=== PATIENT | female | born 1960 | race Caucasian/White ===

== ENCOUNTER 2020-11-12 11:21 | Inpatient (IN) | payer SELFPAY ==
[2020-11-12 11:31] VITALS: BMI 21.9
[2020-11-12 12:19] LABS: BASO % 0.3 % (0-2.0); HEMATOCRIT 36.7 % (32.4-45.2); HEMOGLOBIN 12.4 GM/dL (10.7-15.3); LYMPH % 2.6 % (8-40); MCH 34.7 pg (25.7-33.7); MCHC 33.8 g/dl (32.0-36.0); MEAN CELL VOLUME 102.7 fl (80-96); MONO % 5.1 % (3.8-10.2); PLATELET COUNT 283 10^3/uL (134-434); RBC 3.58 M/mm3 (3.60-5.2); RDW 14.8 % (11.6-15.6); WHITE BLOOD COUNT 22.5 K/mm3 (4.0-10.0)
[2020-11-12 12:36] LABS: CHLORIDE 106 mmol/L (98-107); SODIUM 124 mmol/L (136-145)
[2020-11-12 12:40] LABS: ALBUMIN 3.4 g/dl (3.4-5.0); CALCIUM 7.7 mg/dL (8.5-10.1); CO2 23 mmol/L (21-32); GLUCOSE,RANDOM 156 mg/dL (74-106)
[2020-11-12 12:41] LABS: MAGNESIUM 2.1 mg/dL (1.8-2.4)
[2020-11-12 12:43] LABS: CREATININE 0.7 mg/dL (0.55-1.3); PHOSPHOROUS 4.8 mg/dL (2.5-4.9)
[2020-11-12 12:44] LABS: ALK PHOS 77 U/L (45-117); TOT PROT 8.5 g/dl (6.4-8.2)
[2020-11-12 12:51] LABS: ANISOCYTOSIS 1+; MACROCYTOSIS 1+; PLATELET ESTIMATE NORMAL
[2020-11-12 12:52] LABS: ANION GAP -5 MMOL/L (8-16)
[2020-11-12] MEDS ORDERED: ceFAZolin 2 GRAM PREMIX BAG IVPB ONE (13:00)
[2020-11-12] MEDS ORDERED: DIPHTH,PERTUSS(ACELL),TET 0.5 ML DISP.SYRIN IM ONE ×2 (13:01→14:08)
[2020-11-12] MEDS ORDERED: ACETAMINOPHEN 325 MG TABLET (FP) PO ONE (13:01)
[2020-11-12] MEDS ORDERED: ACETAMINOPHEN 1000 MG/100 ML VIAL (NON FORMULARY) IVPB ONE (13:06)
[2020-11-12] MEDS ORDERED: levETIRAcetam 500 MG/5 ML INJECTION VIAL IVPB ONE ×3 (13:12→14:10)
[2020-11-12 13:59] LABS: CHLORIDE 111 mmol/L (98-107); SODIUM 144 mmol/L (136-145)
[2020-11-12 14:02] LABS: ALBUMIN 3.6 g/dl (3.4-5.0); ANION GAP 7 MMOL/L (8-16); BLOOD UREA NITROGEN 11.5 mg/dL (7-18); CALCIUM 8.5 mg/dL (8.5-10.1); CO2 26 mmol/L (21-32); GLUCOSE,RANDOM 108 mg/dL (74-106)
[2020-11-12 14:05] LABS: CREATININE 0.5 mg/dL (0.55-1.3); SGOT/AST 27 U/L (15-37); SGPT/ALT 25 U/L (13-61)
[2020-11-12] MEDS ORDERED: ACETAMINOPHEN INJECTION 100 ML IVPB ONE (14:07)
[2020-11-12] MEDS ORDERED: ACETAMINOPHEN 325 MG TABLET (FP) ONE (14:07)
[2020-11-12 14:08] LABS: ALK PHOS 74 U/L (45-117)
[2020-11-12] MEDS ORDERED: CEFAZOLIN 2 GM/D5W 2 GM/50 ML ML IVPB ONE (14:08)
[2020-11-12 14:42] LABS: BILIRUBIN,TOTAL 1.1 mg/dL (0.2-1); TOT PROT 6.5 g/dl (6.4-8.2)
[2020-11-12] MEDS ORDERED: THIAMINE HCL 100 MG TABLET (FP) PO SCH (16:45)
[2020-11-12] MEDS ORDERED: MULTIVITAMINS (DAILY MVI) TABLET (FP) PO SCH (16:45)
[2020-11-12] MEDS ORDERED: FOLIC ACID 1 MG TABLET (FP) PO SCH (16:45)
[2020-11-12] MEDS ORDERED: HEPARIN NA (PORCINE) 5,000 UNITS/ML 1ML VIAL SQ SCH (22:00)
[2020-11-13 07:09] LABS: BASO % 0.2 % (0-2.0); EOS % 0.2 % (0-4.5); HEMATOCRIT 32.2 % (32.4-45.2); HEMOGLOBIN 11.2 GM/dL (10.7-15.3); LYMPH % 10.1 % (8-40); MCH 35.1 pg (25.7-33.7); MCHC 34.7 g/dl (32.0-36.0); MEAN CELL VOLUME 101.2 fl (80-96); MEAN PLT VOLUME 8.8 fl (7.5-11.1); MONO % 9.9 % (3.8-10.2); NEUT % 79.6 % (42.8-82.8); PLATELET COUNT 242 10^3/uL (134-434); RBC 3.18 M/mm3 (3.60-5.2); RDW 14.1 % (11.6-15.6); WHITE BLOOD COUNT 15.8 K/mm3 (4.0-10.0)
[2020-11-13 07:18] LABS: INR 0.96 (0.83-1.09); PROTHROMBIN TIME (PATIENT) 11.6 SEC (9.7-13.0)
[2020-11-13 07:21] LABS: ACTIVATED PTT 25.7 SECONDS (25.2-36.5)
[2020-11-13 07:47] LABS: ALBUMIN 3.5 g/dl (3.4-5.0); BLOOD UREA NITROGEN 10.1 mg/dL (7-18)
[2020-11-13 07:49] LABS: BILIRUBIN,TOTAL 1.3 mg/dL (0.2-1); CALCIUM 8.7 mg/dL (8.5-10.1); MAGNESIUM 2.1 mg/dL (1.8-2.4); TOT PROT 6.6 g/dl (6.4-8.2)
[2020-11-13 07:50] LABS: CREATININE 0.5 mg/dL (0.55-1.3); PHOSPHOROUS 2.7 mg/dL (2.5-4.9)
[2020-11-13] MEDS ORDERED: levETIRAcetam 500 MG/5 ML INJECTION VIAL IVPB SCH (10:00)
[2020-11-13] MEDS ORDERED: ACETAMINOPHEN 325 MG TABLET (FP) PO PRN (13:34)
[2020-11-13] MEDS ORDERED: THIAMINE HCL 100 MG TABLET (FP) PO SCH (14:30)
[2020-11-13] MEDS: MULTIVITAMINS (DAILY MVI) TABLET (FP) PO SCH (15:30)
[2020-11-13] MEDS: levETIRAcetam 500 MG TABLET (FP) PO SCH ×2 (15:30→21:15)
[2020-11-13] MEDS: FOLIC ACID 1 MG TABLET (FP) PO SCH (15:30)
[2020-11-13] MEDS ORDERED: QUEtiapine FUMARATE 25 MG TABLET PO ONE (21:14)
[2020-11-13] MEDS: MUPIROCIN 2% TOPICAL OINTMENT FOR DECOLONIZATION NS SCH (21:15)
[2020-11-13] MEDS: THIAMINE HCL 200 MG/2 ML VIAL IVPB SCH (21:15)
[2020-11-13] MEDS: CHLORHEXIDINE GLUCONATE 4% CLEANSER FOR DECOLONIZATION TP SCH (21:16)
[2020-11-13] MEDS: MELATONIN 5 MG TABLETS PO SCH (21:55)
[2020-11-14] MEDS: THIAMINE HCL 200 MG/2 ML VIAL IVPB SCH ×3 (03:02→21:00)
[2020-11-14 06:39] LABS: BASO % 0.4 % (0-2.0); EOS % 0.9 % (0-4.5); HEMATOCRIT 29.2 % (32.4-45.2); HEMOGLOBIN 10.1 GM/dL (10.7-15.3); LYMPH % 12.4 % (8-40); MCH 35.6 pg (25.7-33.7); MCHC 34.8 g/dl (32.0-36.0); MEAN CELL VOLUME 102.3 fl (80-96); MEAN PLT VOLUME 9.5 fl (7.5-11.1); MONO % 9.5 % (3.8-10.2); NEUT % 76.8 % (42.8-82.8); PLATELET COUNT 213 10^3/uL (134-434); RBC 2.85 M/mm3 (3.60-5.2); RDW 13.7 % (11.6-15.6); WHITE BLOOD COUNT 13.6 K/mm3 (4.0-10.0)
[2020-11-14 07:06] LABS: ALBUMIN 3.2 g/dl (3.4-5.0); CALCIUM 8.7 mg/dL (8.5-10.1)
[2020-11-14 07:09] LABS: CREATININE 0.4 mg/dL (0.55-1.3)
[2020-11-14 07:10] LABS: PHOSPHOROUS 2.8 mg/dL (2.5-4.9)
[2020-11-14 07:11] LABS: TOT PROT 6.3 g/dl (6.4-8.2)
[2020-11-14] MEDS: FOLIC ACID 1 MG TABLET (FP) PO SCH (10:52)
[2020-11-14] MEDS: MUPIROCIN 2% TOPICAL OINTMENT FOR DECOLONIZATION NS SCH ×2 (10:52→22:39)
[2020-11-14] MEDS: levETIRAcetam 500 MG TABLET (FP) PO SCH ×2 (10:53→22:39)
[2020-11-14] MEDS: MULTIVITAMINS (DAILY MVI) TABLET (FP) PO SCH (10:53)
[2020-11-14] MEDS: CHLORHEXIDINE GLUCONATE 4% CLEANSER FOR DECOLONIZATION TP SCH (22:39)
[2020-11-14] MEDS: MELATONIN 5 MG TABLETS PO SCH (22:39)
[2020-11-15] MEDS ORDERED: THIAMINE HCL 100 MG TABLET (FP) PO ONE (04:47)
[2020-11-15] MEDS: THIAMINE HCL 200 MG/2 ML VIAL IVPB SCH ×3 (05:11→20:00)
[2020-11-15 07:24] LABS: BASO % 0.2 % (0-2.0); EOS % 1.1 % (0-4.5); HEMATOCRIT 32.5 % (32.4-45.2); HEMOGLOBIN 11.3 GM/dL (10.7-15.3); LYMPH % 11.2 % (8-40); MCH 35.1 pg (25.7-33.7); MCHC 34.6 g/dl (32.0-36.0); MEAN CELL VOLUME 101.4 fl (80-96); MEAN PLT VOLUME 8.8 fl (7.5-11.1); NEUT % 79.5 % (42.8-82.8); PLATELET COUNT 260 10^3/uL (134-434); RBC 3.21 M/mm3 (3.60-5.2); RDW 13.6 % (11.6-15.6)
[2020-11-15 07:37] LABS: ALBUMIN 3.2 g/dl (3.4-5.0); BLOOD UREA NITROGEN 12.1 mg/dL (7-18); CALCIUM 8.8 mg/dL (8.5-10.1); MAGNESIUM 1.9 mg/dL (1.8-2.4)
[2020-11-15 07:40] LABS: CREATININE 0.4 mg/dL (0.55-1.3)
[2020-11-15 07:41] LABS: PHOSPHOROUS 3.4 mg/dL (2.5-4.9)
[2020-11-15 07:42] LABS: BILIRUBIN,TOTAL 0.8 mg/dL (0.2-1); TOT PROT 6.5 g/dl (6.4-8.2)
[2020-11-15] MEDS: FOLIC ACID 1 MG TABLET (FP) PO SCH (09:17)
[2020-11-15] MEDS: levETIRAcetam 500 MG TABLET (FP) PO SCH ×2 (09:17→22:00)
[2020-11-15] MEDS: MULTIVITAMINS (DAILY MVI) TABLET (FP) PO SCH (09:17)
[2020-11-15] MEDS: ACETAMINOPHEN 325 MG TABLET (FP) PO PRN (11:24)
[2020-11-15] MEDS: MELATONIN 5 MG TABLETS PO SCH (22:00)
[2020-11-16] MEDS: THIAMINE HCL 200 MG/2 ML VIAL IVPB SCH ×3 (04:00→20:00)
[2020-11-16 07:35] LABS: BASO % 0.6 % (0-2.0); EOS % 0.9 % (0-4.5); HEMATOCRIT 33.6 % (32.4-45.2); HEMOGLOBIN 11.7 GM/dL (10.7-15.3); LYMPH % 11.3 % (8-40); MCH 35.5 pg (25.7-33.7); MCHC 34.9 g/dl (32.0-36.0); MEAN CELL VOLUME 101.7 fl (80-96); MEAN PLT VOLUME 9.1 fl (7.5-11.1); MONO % 9.3 % (3.8-10.2); NEUT % 77.9 % (42.8-82.8); PLATELET COUNT 303 10^3/uL (134-434); RDW 13.3 % (11.6-15.6); WHITE BLOOD COUNT 12.6 K/mm3 (4.0-10.0)
[2020-11-16 07:57] LABS: BLOOD UREA NITROGEN 10.9 mg/dL (7-18); CALCIUM 8.6 mg/dL (8.5-10.1)
[2020-11-16 07:58] LABS: ALBUMIN 3.1 g/dl (3.4-5.0)
[2020-11-16 08:01] LABS: CREATININE 0.4 mg/dL (0.55-1.3); PHOSPHOROUS 3.3 mg/dL (2.5-4.9)
[2020-11-16 08:02] LABS: TOT PROT 6.4 g/dl (6.4-8.2)
[2020-11-16] MEDS: MULTIVITAMINS (DAILY MVI) TABLET (FP) PO SCH (10:33)
[2020-11-16] MEDS: levETIRAcetam 500 MG TABLET (FP) PO SCH ×2 (10:33→21:30)
[2020-11-16] MEDS: FOLIC ACID 1 MG TABLET (FP) PO SCH (10:33)
[2020-11-16] MEDS: MELATONIN 5 MG TABLETS PO SCH (21:30)
[2020-11-17 06:46] LABS: BASO % 0.4 % (0-2.0); EOS % 1.3 % (0-4.5); HEMATOCRIT 33.4 % (32.4-45.2); HEMOGLOBIN 11.7 GM/dL (10.7-15.3); LYMPH % 14.6 % (8-40); MCH 35.3 pg (25.7-33.7); MEAN CELL VOLUME 100.8 fl (80-96); MEAN PLT VOLUME 8.9 fl (7.5-11.1); MONO % 10.4 % (3.8-10.2); NEUT % 73.3 % (42.8-82.8); PLATELET COUNT 336 10^3/uL (134-434); RBC 3.32 M/mm3 (3.60-5.2); RDW 13.4 % (11.6-15.6); WHITE BLOOD COUNT 12.7 K/mm3 (4.0-10.0)
[2020-11-17 07:03] LABS: CALCIUM 8.6 mg/dL (8.5-10.1)
[2020-11-17 07:04] LABS: ALBUMIN 3.1 g/dl (3.4-5.0); BLOOD UREA NITROGEN 8.8 mg/dL (7-18); MAGNESIUM 1.9 mg/dL (1.8-2.4)
[2020-11-17 07:07] LABS: CREATININE 0.4 mg/dL (0.55-1.3); PHOSPHOROUS 3.4 mg/dL (2.5-4.9)
[2020-11-17 07:08] LABS: BILIRUBIN,TOTAL 0.8 mg/dL (0.2-1); TOT PROT 6.2 g/dl (6.4-8.2)
[2020-11-17] MEDS: levETIRAcetam 500 MG TABLET (FP) PO SCH ×2 (09:25→21:46)
[2020-11-17] MEDS: FOLIC ACID 1 MG TABLET (FP) PO SCH (09:25)
[2020-11-17] MEDS: MULTIVITAMINS (DAILY MVI) TABLET (FP) PO SCH (09:25)
[2020-11-17] MEDS: ACETAMINOPHEN 325 MG TABLET (FP) PO PRN (20:04)
[2020-11-17] MEDS: MELATONIN 5 MG TABLETS PO SCH (21:46)
[2020-11-18 06:33] LABS: BASO % 0.6 % (0-2.0); EOS % 2.1 % (0-4.5); HEMATOCRIT 35.4 % (32.4-45.2); HEMOGLOBIN 12.2 GM/dL (10.7-15.3); LYMPH % 16.2 % (8-40); MCH 34.9 pg (25.7-33.7); MCHC 34.6 g/dl (32.0-36.0); MEAN CELL VOLUME 100.9 fl (80-96); MEAN PLT VOLUME 9.1 fl (7.5-11.1); MONO % 9.8 % (3.8-10.2); NEUT % 71.3 % (42.8-82.8); PLATELET COUNT 360 10^3/uL (134-434); RBC 3.51 M/mm3 (3.60-5.2); RDW 13.5 % (11.6-15.6); WHITE BLOOD COUNT 13.9 K/mm3 (4.0-10.0)
[2020-11-18 06:58] LABS: BLOOD UREA NITROGEN 9.1 mg/dL (7-18); CALCIUM 8.9 mg/dL (8.5-10.1)
[2020-11-18 06:59] LABS: ALBUMIN 3.2 g/dl (3.4-5.0); MAGNESIUM 2.2 mg/dL (1.8-2.4)
[2020-11-18 07:01] LABS: CREATININE 0.4 mg/dL (0.55-1.3); PHOSPHOROUS 4.5 mg/dL (2.5-4.9)
[2020-11-18 07:02] LABS: BILIRUBIN,TOTAL 0.7 mg/dL (0.2-1); TOT PROT 6.4 g/dl (6.4-8.2)
[2020-11-18] MEDS: MULTIVITAMINS (DAILY MVI) TABLET (FP) PO SCH (10:45)
[2020-11-18] MEDS: FOLIC ACID 1 MG TABLET (FP) PO SCH (10:45)
[2020-11-18] MEDS: levETIRAcetam 500 MG TABLET (FP) PO SCH ×2 (10:45→21:52)
[2020-11-18] MEDS: MELATONIN 5 MG TABLETS PO SCH (21:52)
[2020-11-19] MEDS: FOLIC ACID 1 MG TABLET (FP) PO SCH (10:01)
[2020-11-19] MEDS: levETIRAcetam 500 MG TABLET (FP) PO SCH ×2 (10:01→21:49)
[2020-11-19] MEDS: MULTIVITAMINS (DAILY MVI) TABLET (FP) PO SCH (10:02)
[2020-11-19 11:30] LABS: HEMATOCRIT 37.9 % (32.4-45.2); MCH 34.7 pg (25.7-33.7); MCHC 34.4 g/dl (32.0-36.0); MEAN CELL VOLUME 100.9 fl (80-96); MEAN PLT VOLUME 8.7 fl (7.5-11.1); PLATELET COUNT 439 10^3/uL (134-434); RBC 3.75 M/mm3 (3.60-5.2); RDW 13.6 % (11.6-15.6); WHITE BLOOD COUNT 13.7 K/mm3 (4.0-10.0)
[2020-11-19 12:53] LABS: ANISOCYTOSIS 1+; MACROCYTOSIS 1+; PLATELET ESTIMATE INCREASED
[2020-11-19] MEDS: MELATONIN 5 MG TABLETS PO SCH (21:49)
[2020-11-20] MEDS ORDERED: ACETAMINOPHEN 325 MG TABLET (FP) PO PRN (06:05)
[2020-11-20] MEDS ORDERED: FOLIC ACID 1 MG TABLET (FP) PO SCH (10:00)
[2020-11-20] MEDS ORDERED: MULTIVITAMINS (DAILY MVI) TABLET (FP) PO SCH (10:00)
[2020-11-20] MEDS ORDERED: levETIRAcetam 500 MG TABLET (FP) PO SCH (10:00)
[2020-11-20 14:42] VITALS: BP 112/61; PULSE 93; TEMP 98.5
[2020-11-20] MEDS ORDERED: MELATONIN 5 MG TABLETS PO SCH (22:00)
== END 2020-11-20 17:24 | disposition home or self-care (01) | DRG 55 ==
LOC: JER 11:21 → JERBED 15:19 → JICU 11-13 13:22 → J2W 11-14 23:51 → J6S 11-20 05:45
PROVIDERS: ADMIT Internal Medicine Pulmonary Disease
PROC: 0HQ0XZZ Repair Scalp Skin, External Approach (ICD-10-PCS; principal; 2020-11-12)
DX: S06.6X9A Traumatic subarachnoid hemorrhage with loss of consciousness of unspecified duration, initial encounter (principal); G93.6 Cerebral edema; G47.00 Insomnia, unspecified; G93.5 Compression of brain; F10.10 Alcohol abuse, uncomplicated; I10 Essential (primary) hypertension; E78.5 Hyperlipidemia, unspecified; S02.113A Unspecified occipital condyle fracture, initial encounter for closed fracture; S01.01XA Laceration without foreign body of scalp, initial encounter; R45.1 Restlessness and agitation; F05 Delirium due to known physiological condition; W18.30XA Fall on same level, unspecified, initial encounter; Y92.89 Other specified places as the place of occurrence of the external cause
CPT/HCPCS: 36415; 70450-TC; 70496-TC; 71045-TC-FY; 72125-TC; 80048; 80053; 80307; 82272; 82550; 82553; 83735; 84100; 84484; 85025; 85610; 85730; 86850; 86900; 86901; 90715; 93005; 93010; 97116-GP; 97161-GP; 99291; C9803; J0131; U0003; U0005

== ENCOUNTER 2020-12-01 14:13 | Emergency (ER) | payer SELFPAY ==
[2020-12-01 14:21] VITALS: BP 105/71; PULSE 90; TEMP 98; BMI 23.0
== END 2020-12-01 16:43 | disposition home or self-care (01) ==
LOC: JERFT 14:13
DX: S01.01XA Laceration without foreign body of scalp, initial encounter (principal); Y99.9 Unspecified external cause status; Z48.02 Encounter for removal of sutures
CPT/HCPCS: 99281-25